=== PATIENT | female | born 1960 | race Caucasian/White ===

== ENCOUNTER 2020-10-28 06:56 | Emergency (ER) | payer SELFPAY ==
[2020-10-28] MEDS ORDERED: levETIRAcetam 1,000 MG in Sodium Chloride 0.9% 100 ML IV ONE (07:13)
--- NOTE | 2020-10-28 07:50 | PCM.SN.2 ---
- Free Text/Narrative Note: [facility] Date: 10/28/2020 Time: 650 to 719 DX: Rapid Response, Post-Seizure, and Obstructive Airway RX: Establish Patent Airway [67000] I was called by the ED for a rapid response [Needed Intubation] for an incoming ambulance. Upon arrival, the patient appeared postictal state and had received 4 mg's IM Versed in the field for a Grand Mal seizure. She had a moderate obstructing airway which I first orally suctioned and applied a jaw-lift with some success. I did place a 100mm Oral Airway with mild difficulty [very poor teeth] and placed on her a simple mask at 10 l/m. Her breathing greatly improved, SpO2 is above 95% with EtCo2 at 33. No further assistance was needed. In the CT scanner prior to transfer, she had another Grand Mal seizure [witnessed] and the ED physician present cancelled the scan and requested return to the ED for treatment. The seizure lasted over 2 minutes and her SpO2 remained above 90%. Reviewing with the ED physician, he felt that she did not require intubation at this time. Vital signs remained stable with her SpO2 at 97%, EtCO2 34 and heart rate 106. Her breath sounds remain course bilaterally. BETH Neri CRNA
[2020-10-28 07:53] LABS: HCO3 VENOUS,POC 10 mmol/L (21-29); PCO2 VENOUS,POC 34 mmHg (41-51); PH VENOUS,POC 7.08 pH Units (7.32-7.43)
[2020-10-28 07:54] LABS: BASE EXCESS VENOUS,POC -20 mmol/L (-2-3)
[2020-10-28] MEDS ORDERED: Sodium Chloride 0.9% 1,000 ML IV ONE ×3 (08:07→10:32)
--- NOTE | 2020-10-28 08:28 | EDM.PDOC ---
ED HPI GENERAL MEDICAL PROBLEM - General Chief Complaint: Neurological Problem Stated Complaint: RESPIRATORY DISTRESS Time Seen by Provider: 10/28/20 07:00 Source of Information: Reports: EMS, Family - History of Present Illness INITIAL COMMENTS - FREE TEXT/NARRATIVE: c/o seizure pt reported in good health yesterday per sig other, pt coughing this AM and woke sig other at approx 6:15a, they spoke and she seemed fine, she went to the bathroom, after returning to bed sig other observed that pt stiffened with her arms extended straight in front of her, he did not observe shaking he eased her to the floor and called 911, EMS was there in ~7 min per sig other EMS reports pt was unresponsive without tonic-clonic activity, they wondered if pt had had a cardiac arrest, yet vitals seems grossly normal altho PO 88% placed on NRB, transported to ED, en route pt with generalized szs, given Versed 2 mg IM x 2 unresponsive on arrival here, nurse gas transfer operator began 18 gauge in L antecub and temporarily placed an oral airway PO 98-100% on NRB, had coarse breath sounds and small amount emesis in mouth per emesis, later had a small yellow liquid emesis in CT scan sig other reported a loose BM when pt went to bathroom this AM pt had been visiting grandchildren in [facility] yesterday, pt with no h/o COVID, scheduled for 1st COVID vax in 5d no on regular meds sig other reports that pt snores at night and he has wondered if she has JOSE GUADALUPE (as he does himself) altho she has never had a sleep study pt taken to CT and had a szs there that last just under 2 min, IV in place at that juncture, Versed 2 mg IV ordered, however never given as seizure stopped by the time RN retrieved Versed from med room (not in crash cart), given Keppra 1 gm IV in ED and then sent back to CT when stable CxR 1v is neg on prelim review, large gastric air bubble, no pneumo, no infiltrate, possible scattered minimal nodular findings in parenchyma b/l labs suggestive of COVID (inc'd CRP, d-dimer), whoever pt dehydrated with low GFR and unable to do a CTA initially EKG by EMS showed inverted T-weaves in V5 & V6, not present on EKG in ED (normal ST, normal t-waves) 300 ml urine when hinkle placed seizure c/w hypoxia from JOSE GUADALUPE plus COVID, COVID pending sig other informed - Related Data Allergies Allergy/AdvReac Type Severity Reaction Status Date / Time No Known Allergies Allergy Verified 04/11/14 09:54 Home Meds: Home Meds Lisinopril/Hydrochlorothiazide [Zestoretic 20-12.5 mg Tablet] 1 each PO DAILY 04/11/14 [History] Sertraline HCl 50 mg PO DAILY 04/11/14 [History] Social & Family History - Tobacco Use Tobacco Use Status *Q: Unknown Ever Used Tobacco ED ROS GENERAL - Review of Systems Review Of Systems: See Below Reason Not Obtained: unresponsive in ED after seizure Constitutional: Reports: No Symptoms, Other (ROS obtained from sig other who reports loose BM this AM, cough and chest congestion, otherwise neg). Denies: Fever, Chills, Malaise, Weakness HEENT: Reports: No Symptoms Respiratory: Reports: Shortness of Breath Cardiovascular: Reports: No Symptoms Endocrine: Reports: No Symptoms GI/Abdominal: Reports: Diarrhea. Denies: Abdominal Pain, Nausea, Vomiting : Reports: No Symptoms Musculoskeletal: Reports: No Symptoms Skin: Reports: No Symptoms Neurological: Reports: No Symptoms Psychiatric: Reports: No Symptoms Hematologic/Lymphatic: Reports: No Symptoms Immunologic: Reports: No Symptoms ED EXAM, GENERAL - Physical Exam Exam: See Below Exam Limited By: Other (unresponsive) General Appearance: WD/WN Eye Exam: Bilateral Eye: PERRL Nose: Normal Inspection Throat/Mouth: Normal Inspection, Other (difficult intubation 6y ago per anesthesia note d/t inc'd oral adipose tissue) Head: Atraumatic, Normocephalic Neck: Normal Inspection. No: Lymphadenopathy (R), Lymphadenopathy (L) Respiratory/Chest: Other (fair AE, scattered coarse rhonchi b/l, no wheeze, no stridor, no inc'd exp phase, symmetric) Cardiovascular: No Gallop, Tachycardia, Other (2/6 SHIVANI at LSB) GI/Abdominal: Soft, Non-Tender, No Distention. No: Hepatomegaly, Splenomegaly Back Exam: Normal Inspection, Full Range of Motion Extremities: Normal Inspection, Non-Tender, No Pedal Edema, Other (dec'd turgor x 4, no tenting, no edema) Neurological: Unresponsive Skin Exam: Warm, Dry, Intact, Normal Color, No Rash Lymphatic: No Adenopathy Course - Orders/Labs/Meds Orders: Active Orders 24 hr Category Date Time Status EKG Documentation Completion [RC] ASDIRECTED Care 10/28/20 07:24 Active EKG Documentation Completion [RC] ASDIRECTED Care 10/28/20 08:36 Active Chest 1V Frontal [CR] Stat Exams 10/28/20 07:24 Taken Head wo Cont [CT] Stat Exams 10/28/20 08:03 Taken CULTURE BLOOD [BC] Urgent Lab 10/28/20 09:08 Received CULTURE BLOOD [BC] Urgent Lab 10/28/20 09:12 Received CULTURE URINE [RM] Stat Lab 10/28/20 07:37 Received Sodium Chloride 0.9% [Normal Saline] 1,000 ml Med 10/28/20 10:32 Active IV .BOLUS Blood Culture x2 Reflex Set [OM.PC] Urgent Oth 10/28/20 07:21 Ordered EKG 12 Lead [EK] Routine Ther 10/28/20 07:21 Ordered EKG 12 Lead [EK] Routine Ther 10/28/20 09:00 Ordered Medication Orders Sodium Chloride (Normal Saline) 1,000 mls @ 999 mls/hr IV .BOLUS ONE Stop: 10/28/20 11:32 Last Admin: 10/28/20 10:33 Dose: 999 mls/hr Documented by: ROJAS Labs: Laboratory Tests 10/28/20 10/28/20 10/28/20 Range/Units 06:55 06:55 06:55 WBC 12.7 H (3.0-10.3) x10-3/uL RBC 4.42 (3.60-5.20) x10(6)uL Hgb 13.6 (11.4-15.5) g/dL Hct 42.5 (34.2-48.2) % MCV 96.1 (76.7-100.5) fL MCH 30.7 (23.9-33.9) pg MCHC 31.9 (31.9-34.8) g/dL RDW 14.0 (12.3-16.5) % Plt Count 272 (151-488) x10(3)uL MPV 8.9 (7.1-12.4) fL Neut % (Auto) 68.5 (30.8-76.2) % Lymph % (Auto) 26.6 (18.4-52.1) % [place] % (Auto) 3.6 L (4.4-15.7) % Eos % (Auto) 0.7 (0.6-8.1) % Baso % (Auto) 0.6 (0.2-1.5) % Neut # (Auto) 8.7 H (1.5-6.3) x10-3/uL Lymph # (Auto) 3.4 (1.0-4.4) x10-3/uL [place] # (Auto) 0.5 (0.3-1.0) x10-3/uL Eos # (Auto) 0.1 (0.0-0.8) x10-3/uL Baso # (Auto) 0.1 (0.0-0.1) x10-3/uL PT (9.0-11.1) sec INR (1.00-1.24) D-Dimer, Quantitative 2.50 H (0.0-0.59) mg/LFEU POC VBG pH (7.32-7.43) pH Units POC VBG pCO2 (41-51) mmHg POC VBG HCO3 (21-29) mmol/L VBG Base Excess (-2-3) mmol/L O2 Delivery Device Sodium 144 (135-145) mmol/L Potassium 3.4 L (3.5-5.3) mmol/L Chloride 104 (100-110) mmol/L Carbon Dioxide 15 L (21-32) mmol/L BUN 25 H (7-18) mg/dL Creatinine 1.6 H (0.55-1.02) mg/dL Est Cr Clr Drug Dosing TNP Estimated GFR (MDRD) 33 L (>60) BUN/Creatinine Ratio 15.6 (9-20) Glucose 199 H (80-116) mg/dL Lactic Acid (0.4-2.0) mmol/L Calcium 9.3 (8.6-10.2) mg/dL Magnesium (1.8-2.5) mg/dL Total Bilirubin 0.7 (0.1-1.3) mg/dL AST 52 H (5-25) IU/L ALT 81 H (12-36) U/L Alkaline Phosphatase 70 (56-112) IU/L Troponin I (4.0-60.3) pg/mL C-Reactive Protein (0.5-0.9) mg/dL NT-Pro-B Natriuret Pep (<=125) pg/mL Total Protein 8.5 H (6.0-8.0) g/dL Albumin 3.7 (3.5-5.2) g/dL Globulin 4.8 g/dL Albumin/Globulin Ratio 0.8 TSH, Ultra Sensitive (0.36-3.74) IU/mL Urine Color (YELLOW) Urine Appearance (CLEAR) Urine pH (5.0-6.5) Ur Specific [place] (1.010-1.025) Urine Protein (NEGATIVE) mg/dL Urine Glucose (UA) (NORMAL) mg/dL Urine Ketones (NEGATIVE) mg/dL Urine Occult Blood (NEGATIVE) Urine Nitrite (NEGATIVE) Urine Bilirubin (NEGATIVE) Urine Urobilinogen (NEGATIVE) mg/dL Ur Leukocyte Esterase (NEGATIVE) U Hyaline Cast (Auto) (NS) Urine RBC (0-5) Urine WBC (0-5) Ur Squamous Epith Cells (NS,R,O) Amorphous Sediment Urine Bacteria (NS) Fine Granular Casts (NS) Coarse Granular Casts (NS) Urine Mucus (NS) Urine Opiates Screen (NEGATIVE) Ur Oxycodone Screen (NEGATIVE) Ur Propoxyphene Screen (NEGATIVE) Ur Barbituates Screen (NEGATIVE) Ur Tricyclics Screen (NEGATIVE) Ur Phencyclidine Scrn (NEGATIVE) Ur Amphetamine Screen (NEGATIVE) Urine MDMA Screen (NEGATIVE) U Benzodiazepines Scrn (NEGATIVE) U Cocaine Metab Screen (NEGATIVE) U Marijuana (THC) Screen (NEGATIVE) SARS-CoV-2 RNA (GIOVANNI) (NEGATIVE) 10/28/20 10/28/20 10/28/20 Range/Units 06:55 06:55 06:55 WBC (3.0-10.3) x10-3/uL RBC (3.60-5.20) x10(6)uL Hgb (11.4-15.5) g/dL Hct (34.2-48.2) % MCV (76.7-100.5) fL MCH (23.9-33.9) pg MCHC (31.9-34.8) g/dL RDW (12.3-16.5) % Plt Count (151-488) x10(3)uL MPV (7.1-12.4) fL Neut % (Auto) (30.8-76.2) % Lymph % (Auto) (18.4-52.1) % [place] % (Auto) (4.4-15.7) % Eos % (Auto) (0.6-8.1) % Baso % (Auto) (0.2-1.5) % Neut # (Auto) (1.5-6.3) x10-3/uL Lymph # (Auto) (1.0-4.4) x10-3/uL [place] # (Auto) (0.3-1.0) x10-3/uL Eos # (Auto) (0.0-0.8) x10-3/uL Baso # (Auto) (0.0-0.1) x10-3/uL PT (9.0-11.1) sec INR (1.00-1.24) D-Dimer, Quantitative (0.0-0.59) mg/LFEU POC VBG pH (7.32-7.43) pH Units POC VBG pCO2 (41-51) mmHg POC VBG HCO3 (21-29) mmol/L VBG Base Excess (-2-3) mmol/L O2 Delivery Device Sodium (135-145) mmol/L Potassium (3.5-5.3) mmol/L Chloride (100-110) mmol/L Carbon Dioxide (21-32) mmol/L BUN (7-18) mg/dL Creatinine (0.55-1.02) mg/dL Est Cr Clr Drug Dosing Estimated GFR (MDRD) (>60) BUN/Creatinine Ratio (9-20) Glucose (80-116) mg/dL Lactic Acid 15.6 H* (0.4-2.0) mmol/L Calcium (8.6-10.2) mg/dL Magnesium (1.8-2.5) mg/dL Total Bilirubin (0.1-1.3) mg/dL AST (5-25) IU/L ALT (12-36) U/L Alkaline Phosphatase (56-112) IU/L Troponin I 11.9 (4.0-60.3) pg/mL C-Reactive Protein 1.9 H (0.5-0.9) mg/dL NT-Pro-B Natriuret Pep (<=125) pg/mL Total Protein (6.0-8.0) g/dL Albumin (3.5-5.2) g/dL Globulin g/dL Albumin/Globulin Ratio TSH, Ultra Sensitive 2.49 (0.36-3.74) IU/mL Urine Color (YELLOW) Urine Appearance (CLEAR) Urine pH (5.0-6.5) Ur Specific [place] (1.010-1.025) Urine Protein (NEGATIVE) mg/dL Urine Glucose (UA) (NORMAL) mg/dL Urine Ketones (NEGATIVE) mg/dL Urine Occult Blood (NEGATIVE) Urine Nitrite (NEGATIVE) Urine Bilirubin (NEGATIVE) Urine Urobilinogen (NEGATIVE) mg/dL Ur Leukocyte Esterase (NEGATIVE) U Hyaline Cast (Auto) (NS) Urine RBC (0-5) Urine WBC (0-5) Ur Squamous Epith Cells (NS,R,O) Amorphous Sediment Urine Bacteria (NS) Fine Granular Casts (NS) Coarse Granular Casts (NS) Urine Mucus (NS) Urine Opiates Screen (NEGATIVE) Ur Oxycodone Screen (NEGATIVE) Ur Propoxyphene Screen (NEGATIVE) Ur Barbituates Screen (NEGATIVE) Ur Tricyclics Screen (NEGATIVE) Ur Phencyclidine Scrn (NEGATIVE) Ur Amphetamine Screen (NEGATIVE) Urine MDMA Screen (NEGATIVE) U Benzodiazepines Scrn (NEGATIVE) U Cocaine Metab Screen (NEGATIVE) U Marijuana (THC) Screen (NEGATIVE) SARS-CoV-2 RNA (GIOVANNI) (NEGATIVE) 10/28/20 10/28/20 10/28/20 Range/Units 06:55 06:55 06:55 WBC (3.0-10.3) x10-3/uL RBC (3.60-5.20) x10(6)uL Hgb (11.4-15.5) g/dL Hct (34.2-48.2) % MCV (76.7-100.5) fL MCH (23.9-33.9) pg MCHC (31.9-34.8) g/dL RDW (12.3-16.5) % Plt Count (151-488) x10(3)uL MPV (7.1-12.4) fL Neut % (Auto) (30.8-76.2) % Lymph % (Auto) (18.4-52.1) % [place] % (Auto) (4.4-15.7) % Eos % (Auto) (0.6-8.1) % Baso % (Auto) (0.2-1.5) % Neut # (Auto) (1.5-6.3) x10-3/uL Lymph # (Auto) (1.0-4.4) x10-3/uL [place] # (Auto) (0.3-1.0) x10-3/uL Eos # (Auto) (0.0-0.8) x10-3/uL Baso # (Auto) (0.0-0.1) x10-3/uL PT 9.4 (9.0-11.1) sec INR 0.86 L (1.00-1.24) D-Dimer, Quantitative (0.0-0.59) mg/LFEU POC VBG pH 7.08 L* (7.32-7.43) pH Units POC VBG pCO2 34 L (41-51) mmHg POC VBG HCO3 10 L (21-29) mmol/L VBG Base Excess -20 L (-2-3) mmol/L O2 Delivery Device Non rebr mask Sodium (135-145) mmol/L Potassium (3.5-5.3) mmol/L Chloride (100-110) mmol/L Carbon Dioxide (21-32) mmol/L BUN (7-18) mg/dL Creatinine (0.55-1.02) mg/dL Est Cr Clr Drug Dosing Estimated GFR (MDRD) (>60) BUN/Creatinine Ratio (9-20) Glucose (80-116) mg/dL Lactic Acid (0.4-2.0) mmol/L Calcium (8.6-10.2) mg/dL Magnesium 2.4 (1.8-2.5) mg/dL Total Bilirubin (0.1-1.3) mg/dL AST (5-25) IU/L ALT (12-36) U/L Alkaline Phosphatase (56-112) IU/L Troponin I (4.0-60.3) pg/mL C-Reactive Protein (0.5-0.9) mg/dL NT-Pro-B Natriuret Pep (<=125) pg/mL Total Protein (6.0-8.0) g/dL Albumin (3.5-5.2) g/dL Globulin g/dL Albumin/Globulin Ratio TSH, Ultra Sensitive (0.36-3.74) IU/mL Urine Color (YELLOW) Urine Appearance (CLEAR) Urine pH (5.0-6.5) Ur Specific [place] (1.010-1.025) Urine Protein (NEGATIVE) mg/dL Urine Glucose (UA) (NORMAL) mg/dL Urine Ketones (NEGATIVE) mg/dL Urine Occult Blood (NEGATIVE) Urine Nitrite (NEGATIVE) Urine Bilirubin (NEGATIVE) Urine Urobilinogen (NEGATIVE) mg/dL Ur Leukocyte Esterase (NEGATIVE) U Hyaline Cast (Auto) (NS) Urine RBC (0-5) Urine WBC (0-5) Ur Squamous Epith Cells (NS,R,O) Amorphous Sediment Urine Bacteria (NS) Fine Granular Casts (NS) Coarse Granular Casts (NS) Urine Mucus (NS) Urine Opiates Screen (NEGATIVE) Ur Oxycodone Screen (NEGATIVE) Ur Propoxyphene Screen (NEGATIVE) Ur Barbituates Screen (NEGATIVE) Ur Tricyclics Screen (NEGATIVE) Ur Phencyclidine Scrn (NEGATIVE) Ur Amphetamine Screen (NEGATIVE) Urine MDMA Screen (NEGATIVE) U Benzodiazepines Scrn (NEGATIVE) U Cocaine Metab Screen (NEGATIVE) U Marijuana (THC) Screen (NEGATIVE) SARS-CoV-2 RNA (GIOVANNI) (NEGATIVE) 10/28/20 10/28/20 10/28/20 Range/Units 06:55 07:37 07:40 WBC (3.0-10.3) x10-3/uL RBC (3.60-5.20) x10(6)uL Hgb (11.4-15.5) g/dL Hct (34.2-48.2) % MCV (76.7-100.5) fL MCH (23.9-33.9) pg MCHC (31.9-34.8) g/dL RDW (12.3-16.5) % Plt Count (151-488) x10(3)uL MPV (7.1-12.4) fL Neut % (Auto) (30.8-76.2) % Lymph % (Auto) (18.4-52.1) % [place] % (Auto) (4.4-15.7) % Eos % (Auto) (0.6-8.1) % Baso % (Auto) (0.2-1.5) % Neut # (Auto) (1.5-6.3) x10-3/uL Lymph # (Auto) (1.0-4.4) x10-3/uL [place] # (Auto) (0.3-1.0) x10-3/uL Eos # (Auto) (0.0-0.8) x10-3/uL Baso # (Auto) (0.0-0.1) x10-3/uL PT (9.0-11.1) sec INR (1.00-1.24) D-Dimer, Quantitative (0.0-0.59) mg/LFEU POC VBG pH (7.32-7.43) pH Units POC VBG pCO2 (41-51) mmHg POC VBG HCO3 (21-29) mmol/L VBG Base Excess (-2-3) mmol/L O2 Delivery Device Sodium (135-145) mmol/L Potassium (3.5-5.3) mmol/L Chloride (100-110) mmol/L Carbon Dioxide (21-32) mmol/L BUN (7-18) mg/dL Creatinine (0.55-1.02) mg/dL Est Cr Clr Drug Dosing Estimated GFR (MDRD) (>60) BUN/Creatinine Ratio (9-20) Glucose (80-116) mg/dL Lactic Acid (0.4-2.0) mmol/L Calcium (8.6-10.2) mg/dL Magnesium (1.8-2.5) mg/dL Total Bilirubin (0.1-1.3) mg/dL AST (5-25) IU/L ALT (12-36) U/L Alkaline Phosphatase (56-112) IU/L Troponin I (4.0-60.3) pg/mL C-Reactive Protein (0.5-0.9) mg/dL NT-Pro-B Natriuret Pep 211 H (<=125) pg/mL Total Protein (6.0-8.0) g/dL Albumin (3.5-5.2) g/dL Globulin g/dL Albumin/Globulin Ratio TSH, Ultra Sensitive (0.36-3.74) IU/mL Urine Color Yellow (YELLOW) Urine Appearance Slightly cloudy (CLEAR) Urine pH 5.0 (5.0-6.5) Ur Specific [place] 1.025 (1.010-1.025) Urine Protein Trace (NEGATIVE) mg/dL Urine Glucose (UA) Normal (NORMAL) mg/dL Urine Ketones 15 H (NEGATIVE) mg/dL Urine Occult Blood Moderate H (NEGATIVE) Urine Nitrite Negative (NEGATIVE) Urine Bilirubin Negative (NEGATIVE) Urine Urobilinogen Normal (NEGATIVE) mg/dL Ur Leukocyte Esterase Negative (NEGATIVE) U Hyaline Cast (Auto) Moderate H (NS) Urine RBC 0-5 (0-5) Urine WBC 0-5 (0-5) Ur Squamous Epith Cells Occasional (NS,R,O) Amorphous Sediment Few Urine Bacteria Moderate H (NS) Fine Granular Casts Few H (NS) Coarse Granular Casts Few H (NS) Urine Mucus Few H (NS) Urine Opiates Screen Negative (NEGATIVE) Ur Oxycodone Screen Negative (NEGATIVE) Ur Propoxyphene Screen Negative (NEGATIVE) Ur Barbituates Screen Negative (NEGATIVE) Ur Tricyclics Screen Negative (NEGATIVE) Ur Phencyclidine Scrn Negative (NEGATIVE) Ur Amphetamine Screen Negative (NEGATIVE) Urine MDMA Screen Negative (NEGATIVE) U Benzodiazepines Scrn Negative (NEGATIVE) U Cocaine Metab Screen Negative (NEGATIVE) U Marijuana (THC) Screen Negative (NEGATIVE) SARS-CoV-2 RNA (GIOVANNI) (NEGATIVE) 10/28/20 10/28/20 10/28/20 Range/Units 08:02 09:12 09:12 WBC (3.0-10.3) x10-3/uL RBC (3.60-5.20) x10(6)uL Hgb (11.4-15.5) g/dL Hct (34.2-48.2) % MCV (76.7-100.5) fL MCH (23.9-33.9) pg MCHC (31.9-34.8) g/dL RDW (12.3-16.5) % Plt Count (151-488) x10(3)uL MPV (7.1-12.4) fL Neut % (Auto) (30.8-76.2) % Lymph % (Auto) (18.4-52.1) % [place] % (Auto) (4.4-15.7) % Eos % (Auto) (0.6-8.1) % Baso % (Auto) (0.2-1.5) % Neut # (Auto) (1.5-6.3) x10-3/uL Lymph # (Auto) (1.0-4.4) x10-3/uL [place] # (Auto) (0.3-1.0) x10-3/uL Eos # (Auto) (0.0-0.8) x10-3/uL Baso # (Auto) (0.0-0.1) x10-3/uL PT (9.0-11.1) sec INR (1.00-1.24) D-Dimer, Quantitative (0.0-0.59) mg/LFEU POC VBG pH (7.32-7.43) pH Units POC VBG pCO2 (41-51) mmHg POC VBG HCO3 (21-29) mmol/L VBG Base Excess (-2-3) mmol/L O2 Delivery Device Sodium (135-145) mmol/L Potassium (3.5-5.3) mmol/L Chloride (100-110) mmol/L Carbon Dioxide (21-32) mmol/L BUN (7-18) mg/dL Creatinine (0.55-1.02) mg/dL Est Cr Clr Drug Dosing Estimated GFR (MDRD) (>60) BUN/Creatinine Ratio (9-20) Glucose (80-116) mg/dL Lactic Acid 3.2 H* (0.4-2.0) mmol/L Calcium (8.6-10.2) mg/dL Magnesium (1.8-2.5) mg/dL Total Bilirubin (0.1-1.3) mg/dL AST (5-25) IU/L ALT (12-36) U/L Alkaline Phosphatase (56-112) IU/L Troponin I 58.0 (4.0-60.3) pg/mL C-Reactive Protein (0.5-0.9) mg/dL NT-Pro-B Natriuret Pep (<=125) pg/mL Total Protein (6.0-8.0) g/dL Albumin (3.5-5.2) g/dL Globulin g/dL Albumin/Globulin Ratio TSH, Ultra Sensitive (0.36-3.74) IU/mL Urine Color (YELLOW) Urine Appearance (CLEAR) Urine pH (5.0-6.5) Ur Specific [place] (1.010-1.025) Urine Protein (NEGATIVE) mg/dL Urine Glucose (UA) (NORMAL) mg/dL Urine Ketones (NEGATIVE) mg/dL Urine Occult Blood (NEGATIVE) Urine Nitrite (NEGATIVE) Urine Bilirubin (NEGATIVE) Urine Urobilinogen (NEGATIVE) mg/dL Ur Leukocyte Esterase (NEGATIVE) U Hyaline Cast (Auto) (NS) Urine RBC (0-5) Urine WBC (0-5) Ur Squamous Epith Cells (NS,R,O) Amorphous Sediment Urine Bacteria (NS) Fine Granular Casts (NS) Coarse Granular Casts (NS) Urine Mucus (NS) Urine Opiates Screen (NEGATIVE) Ur Oxycodone Screen (NEGATIVE) Ur Propoxyphene Screen (NEGATIVE) Ur Barbituates Screen (NEGATIVE) Ur Tricyclics Screen (NEGATIVE) Ur Phencyclidine Scrn (NEGATIVE) Ur Amphetamine Screen (NEGATIVE) Urine MDMA Screen (NEGATIVE) U Benzodiazepines Scrn (NEGATIVE) U Cocaine Metab Screen (NEGATIVE) U Marijuana (THC) Screen (NEGATIVE) SARS-CoV-2 RNA (GIOVANNI) Negative (NEGATIVE) 10/28/20 Range/Units 09:12 WBC (3.0-10.3) x10-3/uL RBC (3.60-5.20) x10(6)uL Hgb (11.4-15.5) g/dL Hct (34.2-48.2) % MCV (76.7-100.5) fL MCH (23.9-33.9) pg MCHC (31.9-34.8) g/dL RDW (12.3-16.5) % Plt Count (151-488) x10(3)uL MPV (7.1-12.4) fL Neut % (Auto) (30.8-76.2) % Lymph % (Auto) (18.4-52.1) % [place] % (Auto) (4.4-15.7) % Eos % (Auto) (0.6-8.1) % Baso % (Auto) (0.2-1.5) % Neut # (Auto) (1.5-6.3) x10-3/uL Lymph # (Auto) (1.0-4.4) x10-3/uL [place] # (Auto) (0.3-1.0) x10-3/uL Eos # (Auto) (0.0-0.8) x10-3/uL Baso # (Auto) (0.0-0.1) x10-3/uL PT (9.0-11.1) sec INR (1.00-1.24) D-Dimer, Quantitative (0.0-0.59) mg/LFEU POC VBG pH 7.34 (7.32-7.43) pH Units POC VBG pCO2 40 L (41-51) mmHg POC VBG HCO3 22 (21-29) mmol/L VBG Base Excess -4 L (-2-3) mmol/L O2 Delivery Device Simple mask Sodium (135-145) mmol/L Potassium (3.5-5.3) mmol/L Chloride (100-110) mmol/L Carbon Dioxide (21-32) mmol/L BUN (7-18) mg/dL Creatinine (0.55-1.02) mg/dL Est Cr Clr Drug Dosing Estimated GFR (MDRD) (>60) BUN/Creatinine Ratio (9-20) Glucose (80-116) mg/dL Lactic Acid (0.4-2.0) mmol/L Calcium (8.6-10.2) mg/dL Magnesium (1.8-2.5) mg/dL Total Bilirubin (0.1-1.3) mg/dL AST (5-25) IU/L ALT (12-36) U/L Alkaline Phosphatase (56-112) IU/L Troponin I (4.0-60.3) pg/mL C-Reactive Protein (0.5-0.9) mg/dL NT-Pro-B Natriuret Pep (<=125) pg/mL Total Protein (6.0-8.0) g/dL Albumin (3.5-5.2) g/dL Globulin g/dL Albumin/Globulin Ratio TSH, Ultra Sensitive (0.36-3.74) IU/mL Urine Color (YELLOW) Urine Appearance (CLEAR) Urine pH (5.0-6.5) Ur Specific [place] (1.010-1.025) Urine Protein (NEGATIVE) mg/dL Urine Glucose (UA) (NORMAL) mg/dL Urine Ketones (NEGATIVE) mg/dL Urine Occult Blood (NEGATIVE) Urine Nitrite (NEGATIVE) Urine Bilirubin (NEGATIVE) Urine Urobilinogen (NEGATIVE) mg/dL Ur Leukocyte Esterase (NEGATIVE) U Hyaline Cast (Auto) (NS) Urine RBC (0-5) Urine WBC (0-5) Ur Squamous Epith Cells (NS,R,O) Amorphous Sediment Urine Bacteria (NS) Fine Granular Casts (NS) Coarse Granular Casts (NS) Urine Mucus (NS) Urine Opiates Screen (NEGATIVE) Ur Oxycodone Screen (NEGATIVE) Ur Propoxyphene Screen (NEGATIVE) Ur Barbituates Screen (NEGATIVE) Ur Tricyclics Screen (NEGATIVE) Ur Phencyclidine Scrn (NEGATIVE) Ur Amphetamine Screen (NEGATIVE) Urine MDMA Screen (NEGATIVE) U Benzodiazepines Scrn (NEGATIVE) U Cocaine Metab Screen (NEGATIVE) U Marijuana (THC) Screen (NEGATIVE) SARS-CoV-2 RNA (GIOVANNI) (NEGATIVE) Meds: Medications Generic Name Dose Route Start Last Admin Trade Name Freq PRN Reason Stop Dose Admin Sodium Chloride 1,000 mls @ 999 mls/hr 10/28/20 10:32 10/28/20 10:33 Normal Saline IV 10/28/20 11:32 999 mls/hr .BOLUS ONE Administration Discontinued Medications Generic Name Dose Route Start Last Admin Trade Name Freq PRN Reason Stop Dose Admin Levetiracetam 1,000 mg/ Sodium 110 mls @ 400 mls/hr 10/28/20 07:13 10/28/20 07:17 Chloride IV 10/28/20 07:27 400 mls/hr ONETIME ONE Administration Sodium Chloride 1,000 mls @ 999 mls/hr 10/28/20 08:07 10/28/20 07:18 Normal Saline IV 10/28/20 09:07 999 mls/hr .BOLUS ONE Administration Sodium Chloride 1,000 mls @ 999 mls/hr 10/28/20 08:35 10/28/20 09:22 Normal Saline IV 10/28/20 09:35 999 mls/hr .BOLUS ONE Administration Ondansetron HCl 4 mg 10/28/20 08:58 10/28/20 09:00 Zofran IVPUSH 10/28/20 08:59 4 mg ONETIME ONE Administration - Re-Assessments/Exams Free Text/Narrative Re-Assessment/Exam: 10/28/20 10:44 10:40p d/w Dr Bradley at [facility] who accepted pt in transfer, ED to ED pt alert, eyes open, changing position in bed, following commands with RN, not speaking lactic acid corrected from 15 to 3, pH from 1.09 to 7.40 now 98% on 2 l/min NC rapid COVID neg altho labs suggestive of COVID (inc'd CRP/d-dimer/TP in context of normal WBC/diff), likely has hypoxia with JOSE GUADALUPE (snores at night, inc'd BMI) and secondary COVID head CT shows a questionable 3 cm low density lesion L frontal, however pt also with onset of szs in CT room that began with twitching L face, then generalized, suggesting that the L frontal low density lesion was not the source cannot exclude other infectious etiologies including encephalitis/meningitis, however no antecedent illness or headache, no apprarent nuchal rigidity temp 99.0 axillary on arrival, repeat prior to transfer 98.5 not anticoagulated at present, unable to do chest CTA d/t low GFR, 2nd liter NS hanging BC x 2 obtained, will give 1 gm ceftriaxone prior to transfer as precaution altho pt nontoxic Departure - Departure Time of Disposition: 10:41 Disposition: DC/Tfer to Other 70 Preliminary Cause of *Q: Cardiac Arrest Condition: Undetermined Clinical Impression: New onset seizure, Hypoxia, Abnormal head CT, Moderate dehydration, Cough, Elevated C-reactive protein (CRP), Elevated total protein, Elevated d-dimer, Acute respiratory acidosis, Elevated lactic acid level, Acute renal insufficiency, Hypokalemia, Altered mental status - Discharge Information *PRESCRIPTION DRUG MONITORING PROGRAM REVIEWED*: Not Applicable *COPY OF PRESCRIPTION DRUG MONITORING REPORT IN PATIENT JERMAN: Not Applicable Referrals: Radha Baez NP [Primary Care Provider] - Forms: ED Department Discharge - My Orders Last 24 Hours: My Active Orders 10/28/20 07:21 Blood Culture x2 Reflex Set [OM.PC] Urgent EKG 12 Lead [EK] Routine 10/28/20 07:24 EKG Documentation Completion [RC] ASDIRECTED Chest 1V Frontal [CR] Stat 10/28/20 07:37 CULTURE URINE [RM] Stat 10/28/20 08:03 Head wo Cont [CT] Stat 10/28/20 08:36 EKG Documentation Completion [RC] ASDIRECTED 10/28/20 09:00 EKG 12 Lead [EK] Routine 10/28/20 09:08 CULTURE BLOOD [BC] Urgent 10/28/20 09:12 CULTURE BLOOD [BC] Urgent 10/28/20 10:32 Sodium Chloride 0.9% [Normal Saline] 1,000 ml IV .BOLUS - Assessment/Plan Last 24 Hours: My Active Orders 10/28/20 07:21 Blood Culture x2 Reflex Set [OM.PC] Urgent EKG 12 Lead [EK] Routine 10/28/20 07:24 EKG Documentation Completion [RC] ASDIRECTED Chest 1V Frontal [CR] Stat 10/28/20 07:37 CULTURE URINE [RM] Stat 10/28/20 08:03 Head wo Cont [CT] Stat 10/28/20 08:36 EKG Documentation Completion [RC] ASDIRECTED 10/28/20 09:00 EKG 12 Lead [EK] Routine 10/28/20 09:08 CULTURE BLOOD [BC] Urgent 10/28/20 09:12 CULTURE BLOOD [BC] Urgent 10/28/20 10:32 Sodium Chloride 0.9% [Normal Saline] 1,000 ml IV .BOLUS
[2020-10-28] MEDS ORDERED: Ondansetron 4 MG/2 ML SDV IVPUSH ONE (08:58)
[2020-10-28 09:28] LABS: BASE EXCESS VENOUS,POC -4 mmol/L (-2-3); HCO3 VENOUS,POC 22 mmol/L (21-29); PCO2 VENOUS,POC 40 mmHg (41-51); PH VENOUS,POC 7.34 pH Units (7.32-7.43)
[2020-10-28] MEDS ORDERED: cefTRIAXone 2 GM Vial IVPUSH ONE (10:51)
[2020-10-28] MEDS ORDERED: Midazolam 1 MG/ML 2 ML SDV IVPUSH ONE (11:10)
== END 2020-10-28 11:18 | disposition other institution (70) ==
LOC: FB.ED 06:56
DX: R56.9 Unspecified convulsions (principal); E86.0 Dehydration; R41.82 Altered mental status, unspecified; E87.6 Hypokalemia; R09.02 Hypoxemia; R05 Cough; R79.82 Elevated C-reactive protein (CRP); R79.1 Abnormal coagulation profile; R74.01 Elevation of levels of liver transaminase levels; E87.2 Acidosis; N28.9 Disorder of kidney and ureter, unspecified; Z20.822 Contact with and (suspected) exposure to COVID-19
CPT/HCPCS: 36415; 70450; 71045; 80053; 80305-QW; 81001; 83605; 83735; 83880; 84443; 84484; 85025; 85379; 85610; 86140; 87040; 87086; 93005; 96365; 96375; 99285-25; J0696; J1953; J2250; J2405; J7030; U0002